=== PATIENT | female | born 1970 | race Caucasian/White ===

== ENCOUNTER 2017-02-04 17:31 | Observation (INO) | payer OTHER, SELFPAY ==
[~2017-02-04 17:31] MED LIST: ISOVUE-370 76%-LOCM 1 ML ONE
[2017-02-04 18:03] LABS: #Basophils 0.1 thou/uL (0.0-0.2); #Eosinphils 0.3 thou/uL (0.0-0.7); #Monocytes 0.6 thou/uL (0.11-0.59); #Neutrophils 6.4 thou/uL (1.40-6.50); %Basophils 0.5 % (0.0-1.0); %Lymphocytes 28.7 % (21.0-51.0); Hematocrit 39.1 % (36.0-47.0); Mean Platelet Volume 7.3 fL (7.4-10.4); Red Blood Cell (RBC) Count 4.49 mill/uL (4.20-5.40); White Blood Cell (WBC) Count 10.4 thou/uL (4.8-10.8)
[2017-02-04 18:32] LABS: ALT (SGPT) 15 U/L (8-55); AST (SGOT) 14 U/L (5-34); Alkaline Phosphatase 82 U/L (40-150); Anion Gap 13 mmol/L (10-20); BUN (Urea Nitrogen) 13 mg/dL (7.0-18.7); Bilirubin, Total 0.2 mg/dL (0.2-1.2); CK (CPK) 42 U/L (29-168); Calc. Creatinine Clearance 0 mL/min (70-130); Calcium 8.8 mg/dL (7.8-10.44); Carbon Dioxide 23 mmol/L (22-29); Chloride 105 mmol/L (98-107); Estimated GFR-MDRD 79; Globulin 3.4 g/dL (2.4-3.5)
--- NOTE | 2017-02-04 18:40 | RAD ---
PORTABLE CHEST: 02/04/17 HISTORY: Chest pain. The lungs are clear of infiltrate. Heart and mediastinum unremarkable. Vascular markings upper normal . IMPRESSION: No evidence of acute process. POS: [facility]
[2017-02-04 18:48] LABS: Troponin I Less than 0.010 ng/mL (< 0.028)
[2017-02-04] MEDS ORDERED: Ondansetron HCl/PF 4 MG/2 ML Vial ONE (20:00)
[2017-02-04] MEDS ORDERED: Morphine 4 MG/ML VIAL ONE (20:00)
[2017-02-04] MEDS ORDERED: Acetaminophen 325 MG TAB PO PRN (20:59)
[2017-02-04] MEDS ORDERED: Benzonatate 100 MG CAP PO PRN (20:59)
[2017-02-04] MEDS ORDERED: Loratadine 10 MG TAB PO PRN (20:59)
[2017-02-04] MEDS ORDERED: Bisacodyl 5 MG TAB PO PRN (20:59)
[2017-02-04] MEDS ORDERED: Nitroglycerin 0.4 MG TAB (25 Tab Bottle) PO PRN (20:59)
[2017-02-04] MEDS ORDERED: Nitroglycerin 0.4 MG TAB (25 Tab Bottle) SL PRN (20:59)
[2017-02-04] MEDS ORDERED: Diabetic Tussin 200 MG/10 ML UDCUP PO PRN (20:59)
[2017-02-04] MEDS ORDERED: Calcium Carbonate 500 MG ChewTAB PO PRN (20:59)
[2017-02-04] MEDS ORDERED: hydrALAZINE 20 MG/ML VIAL SLOW IVP PRN (20:59)
[2017-02-04] MEDS ORDERED: Mag-Al 1200 mg/1200 mg/30 ML UDCUP PO PRN (20:59)
[2017-02-04] MEDS ORDERED: cloNIDine 0.1 MG TAB PO PRN (20:59)
[2017-02-04] MEDS ORDERED: Senokot 8.6 MG TAB PO PRN (20:59)
[2017-02-04] MEDS ORDERED: Lorazepam 1 MG TAB PO PRN (20:59)
[2017-02-04] MEDS ORDERED: Ondansetron HCl/PF 4 MG/2 ML Vial IVP PRN (20:59)
[2017-02-04 21:31] LABS: Troponin I Less than 0.010 ng/mL (< 0.028)
[2017-02-04 21:47] VITALS: BMI 53.4
--- NOTE | 2017-02-04 22:32 | CT ---
CT ANGIO OF CHEST WITH CONTRAST: 02/04/17 Multiple axial tomograms obtained through the chest with IV enhancement in the arterial phase with an dilcia protocol. Multiplanar reconstructions with 3D postprocessing performed. HISTORY: Chest pain. Pleuritic chest pain. FINDINGS: Pulmonary arteries are opacified and appear unremarkable. No evidence of pulmonary embolus identified . The thoracic aorta is opacified and there is no evidence of dissection or aneurysmal dilatation. The lung cornejo are clear. No infiltrate, pneumothorax, or effusion. Mediastinum unremarkable. No adenopathy. Images through the upper abdomen unremarkable. IMPRESSION: No evidence of acute process. POS: [facility]
[2017-02-05 00:24] LABS: Troponin I Less than 0.010 ng/mL (< 0.028)
--- NOTE | 2017-02-05 01:45 | HP ---
DATE OF ADMISSION: 02/04/2017 PRIMARY CARE PHYSICIAN: None. CHIEF COMPLAINT: Chest pain. HISTORY OF PRESENT ILLNESS: Ms. Villanueva is a 46-year-old female with past medical history of hypertens ion, fibromyalgia, and asthma, who presented to the ER with the above-mentioned complaints. History is mainly obtained by the patient herself and electronic medical records have been reviewed. The paris e has been discussed with the admitting ER physician. Ms. Villanueva reports that she has been having left-sided chest pain for the last 2 days. It is worse wi th a deep breath and she rates it as a 10/10 in severity when it hits her. She describes it as a sha rp stabbing pain, which starts under her breast and goes upwards to the center of her sternum. She a lso reports it radiating down her left arm and up her left shoulder. She describes some shortness of breath with it, but denies any diaphoresis, dizziness, or palpitations. She denies any other recent illnesses. She denies any nausea, vomiting, diarrhea, or abdominal pain. She has history of DVT 4 years ago, which was treated for 1 year by Coumadin. The patient does report that she is undergoing a lot of stress. Her fiance has been recently incarce rated and she has just lost her housing as well. She is in the process of moving in with a friend daniella fernando. Upon presentation to the emergency room, she was hemodynamically stable with blood pressure of 139/83 , oxygen saturation 95% on room air, pulse of 85. Her initial workup included a 12-lead EKG, which s hows normal sinus rhythm without any acute ST or T-wave changes. Her initial cardiac enzyme and rest of the blood work are unremarkable. Her D-dimer is within normal limit. Chest x-ray does not show any pleural fluid, effusion, or edema. She has undergone a CT angio of the chest given the pleuritic nature of her chest pain, the results are pending at this time. She is now being admitted for further workup and rule out ACS. She never has had any cardiac risk st ratification in the past. PAST MEDICAL HISTORY: 1. Fibromyalgia. 2. Asthma. 3. Hypertension. 4. Anxiety. 5. Depression. 6. Borderline diabetes. ALLERGIES: SULFA. PAST SURGICAL HISTORY: Removal of the heel spur in 2014. SOCIAL HISTORY: The patient does not have any history of drug, tobacco, or alcohol abuse. FAMILY HISTORY: Significant for diabetes in grandmother. She denies any history of coronary artery disease or stroke running in her family. CURRENT MEDICATIONS: The patient does not remember all of her medications, but she does take aspirin 81 mg daily and metoprolol likely extended release 25 mg daily. REVIEW OF SYSTEMS: The following complete review of systems was negative, unless otherwise mentioned in the HPI or below: Constitutional: Weight loss or gain, ability to conduct usual activities. Skin: Rash, itching. Eyes: Double vision, pain. ENT/Mouth: Nose bleeding, neck stiffness, pain, tenderness. Cardiovascular: Palpitations, dyspnea on exertion, orthopnea. Respiratory: Shortness of breath, wheezing, cough, hemoptysis, fever, or night sweats. Gastrointestinal: Poor appetite, abdominal pain, heartburn, nausea, vomiting, constipation, or diarr hea. Genitourinary: Urgency, frequency, dysuria, nocturia. Musculoskeletal: Pain, swelling. Neurologic/Psychiatric: Anxiety, depression. Allergy/Immunologic: Skin rash, bleeding tendency. LABORATORY DATA: Her CBC is unremarkable. D-dimer is less than 0.27. Serum chemistry showed blood sugar of 106. CK-MB 0.8, troponin less than 0.010, lipase is 11. Chest x-ray by my review is negati ve for any infiltrate, edema, or effusions. No evidence of cardiomegaly. Twelve-lead EKG by my cleopatra azar shows normal sinus rhythm without any acute ST or T-wave changes. PHYSICAL EXAMINATION: VITAL SIGNS: Most recent vital signs include blood pressure 157/92, pulse of 85, respirations 18, sa turating 96% on room air. GENERAL: She is sitting comfortably in chair without any acute distress. She is able to provide all the history without any respiratory problems either. She is awake, alert, and oriented. HEENT: Mucous membrane is moist and pink. Head is normocephalic and atraumatic. Pupils are equal, reactive to light and accommodation. Extraocular movements are intact. NECK: Supple without any lymphadenopathy, JVD, or bruit. CHEST: Clear to auscultation without any wheezing, rales, or rhonchi. CARDIOVASCULAR: Rate and rhythm is regular without any murmur, rubs, or gallops. ABDOMEN: Morbidly obese, soft, nontender, nondistended with positive bowel sounds. EXTREMITIES: Free of any cyanosis, clubbing, or edema. NEUROLOGIC: Nonfocal. SKIN: Free of any rashes or bruises. Feels warm and dry to touch. PSYCHIATRIC: Normal affect. IMPRESSION AND PLAN: 1. Chest pain. The patient has multiple risk factors in the form of hypertension, borderline diabet es, and obesity. At this time, she will be continued on full dose of aspirin. We will restart her b eta rico. She will need risk stratification in the form of stress test. We will also obtain lipi d panel. We will follow up on the results of the CT angio done in the emergency room though she has low clinical risk for pulmonary embolism at this time. She will be continued on p.r.n. oxygen as nee ded and we will add nebulizers to control any breakthrough symptoms of asthma. Currently, her asthma is under well control. She reports that she does not even have to use her inhalers on a daily basis . 2. Hypertension. Restart her beta rico as above. The dose would need to be further confirmed. We will also add p.r.n. antihypertensives. 3. History of fibromyalgia. The patient's symptoms are well controlled at this time. 4. History of asthma. Add nebulizer and oxygen as needed. Symptoms are controlled. 5. Morbid obesity. 6. Add deep venous thrombosis and gastrointestinal prophylaxis. 7. Code status: FULL CODE. Discussed with the patient. 8. Add p.r.n. medication orders. DISPOSITION: Ms. Villanueva is currently being admitted for chest pain workup and rule out ACS and pulmon sofya embolism. Further management will depend upon her clinical course.
[2017-02-05] MEDS: traMADol HCl 50 MG TAB PO PRN ×3 (04:11→14:48)
[2017-02-05 05:36] LABS: #Basophils 0.1 thou/uL (0.0-0.2); #Eosinphils 0.3 thou/uL (0.0-0.7); #Lymphocytes 2.7 thou/uL (1.20-3.40); #Monocytes 0.7 thou/uL (0.11-0.59); #Neutrophils 5.6 thou/uL (1.40-6.50); %Basophils 0.6 % (0.0-1.0); %Eosinophils 3.1 % (0.0-10.0); %Lymphocytes 29.3 % (21.0-51.0); %Monocytes 7.7 % (0.0-10.0); Mean Platelet Volume 7.4 fL (7.4-10.4); Red Blood Cell (RBC) Count 4.54 mill/uL (4.20-5.40); White Blood Cell (WBC) Count 9.4 thou/uL (4.8-10.8)
[2017-02-05 05:58] LABS: Anion Gap 13 mmol/L (10-20); BUN (Urea Nitrogen) 14 mg/dL (7.0-18.7); Calc. Creatinine Clearance 221 mL/min (70-130); Calcium 8.9 mg/dL (7.8-10.44); Carbon Dioxide 23 mmol/L (22-29); Chloride 104 mmol/L (98-107); Estimated GFR-MDRD 80
[2017-02-05] MEDS: Aspirin 325 MG TAB PO SCH (07:34)
[2017-02-05] MEDS ORDERED: Enoxaparin Sodium 40 MG/0.4 ML SYRINGE SC SCH (09:00)
[2017-02-05] MEDS ORDERED: FLU VACC QS2017-18 36 mo. & older 0.5 ML SYRINGE IM ONE (09:00)
[2017-02-05] MEDS: Gabapentin 300 MG CAP PO SCH ×3 (10:54→20:43)
--- NOTE | 2017-02-05 13:05 | PDOC.PN ---
- Subjective Encounter Start Date: 02/05/17 Encounter Start Time: 13:04 Patient seen and examined. No new complaints. No overnight events. No CP. - Objective MAR Reviewed: Yes Vital Signs & Weight: Vital Signs (12 hours) Temp Pulse Resp BP Pulse Ox 02/05/17 11:00 97.3 F L 82 20 154/86 H 94 L 02/05/17 07:53 97.8 F 81 20 02/05/17 07:20 97.8 F 81 20 133/94 H 94 L 02/05/17 04:11 97.7 F 83 16 103/57 L 93 L Weight Weight 341 lb I&O: 02/04/17 02/05/17 02/06/17 06:59 06:59 06:59 Intake Total 720 Balance 720 Result Diagrams: 02/05/17 05:09 02/05/17 05:09 Radiology Reviewed by me: Yes (CXR - no infiltrate, CTA - No PE) EKG Reviewed by me: Yes (Tele SR) Phys Exam - Physical Examination Constitutional: NAD Neck: no JVD Respiratory: no wheezing, no rales, no rhonchi, clear to auscultation bilateral Cardiovascular: RRR, no significant murmur, no rub no heaves Gastrointestinal: soft, non-tender, no distention, positive bowel sounds Musculoskeletal: no edema, pulses present Neurological: non-focal, normal sensation, moves all 4 limbs Psychiatric: normal affect, A&O x 3 Dx/Plan - Plan DVT proph w/SCDs IMPRESSION: 1. Chest pain - troponins negative 2. Morbid Obesity BMI 53.4 3. Fibromyalgia 4. HTN - not at goal 5. Mild int Asthma 6. CKD 2 PLAN: * Await stress test (2 day) * Resume selected home meds - Cymbalta, Doxepin and Gabapentin * Cont to monitor * Add Lidoderm patch * Cont other home meds as below * Monitor BP Review of Systems - Review of Systems Constitutional: negative: Fever, Chills, Sweats, Weakness, Malaise, Other Respiratory: negative: Cough, Dry, Shortness of Breath, Hemoptysis, SOB with Excertion, Pleuritic Pain, Sputum, Wheezing Cardiovascular: negative: Chest Pain, Palpitations, Orthopnea, Paroxysmal Noc. Dyspnea, Edema, Light Headedness - Medications/Allergies Allergies/Adverse Reactions: Allergies Allergy/AdvReac Type Severity Reaction Status Date / Time Sulfa (Sulfonamide Allergy Verified 02/04/17 21:22 Antibiotics) Medications: Current Medications Acetaminophen (Tylenol) 650 mg PO Q4H PRN PRN Reason: Headache/Fever or Pain Last Admin: 02/05/17 07:34 Dose: 650 mg Al Hydroxide/Mg Hydroxide (Maalox) 30 ml PO Q6H PRN PRN Reason: Heartburn or Indigestion Albuterol/Ipratropium (Duoneb) 3 ml NEB Q6H PRN PRN Reason: SOB &/or Wheezing Aspirin (Aspirin) 325 mg PO DAILY [facility] Last Admin: 02/05/17 07:34 Dose: 325 mg Benzonatate (Tessalon) 100 mg PO Q4H PRN PRN Reason: Cough Bisacodyl (Dulcolax) 10 mg PO DAILYPRN PRN PRN Reason: Constipation Calcium Carbonate (Tums) 1,000 mg PO Q4H PRN PRN Reason: Heartburn or Indigestion Clonidine (Catapres) 0.1 mg PO Q4H PRN PRN Reason: Systolic BP > 160 Duloxetine HCl (Cymbalta) 60 mg PO DAILY [facility] Last Admin: 02/05/17 10:54 Dose: 60 mg Gabapentin (Neurontin) 300 mg PO TID [facility] Last Admin: 02/05/17 10:54 Dose: 300 mg Guaifenesin (Robitussin Sf) 200 mg PO Q4H PRN PRN Reason: Cough Hydralazine HCl (Apresoline) 10 mg SLOW IVP Q4H PRN PRN Reason: Systolic BP > 170 Lidocaine (Lidoderm 5% Patch) 1 patch TD Q24H [facility] Loratadine (Claritin) 10 mg PO DAILYPRN PRN PRN Reason: Sinus Symptoms Lorazepam (Ativan) 1 mg PO Q4H PRN PRN Reason: Anxiety/Agitation Metoprolol Succinate (Toprol Xl) 25 mg PO DAILY [facility] Last Admin: 02/05/17 10:54 Dose: 25 mg Mometasone Furoate/Formoterol Fumar (Dulera 200 Mcg/5 Mcg Inhaler) 2 puff INH BID-RT [facility] Nitroglycerin (Nitrostat) 0.4 mg SL Q5MIN PRN PRN Reason: Chest Pain Ondansetron HCl (Zofran) 4 mg IVP Q6H PRN PRN Reason: Nausea/Vomiting Senna (Senokot) 2 tab PO HSPRN PRN PRN Reason: Constipation Tramadol HCl (Ultram) 50 mg PO Q4H PRN PRN Reason: Moderate Pain (4-6) Last Admin: 02/05/17 10:55 Dose: 50 mg
[2017-02-05] MEDS ORDERED: Lidocaine 5% Patch TD SCH (13:15)
[2017-02-05] MEDS ORDERED: Regadenoson 0.4 MG/5 ML SYRINGE ONE (15:31)
[2017-02-05] MEDS ORDERED: Non-Formulary Item 1 EACH (Budesonide-Formoterol [Symbicort 160-4.5] 2 PUFF) INH SCH (18:30)
[2017-02-05] MEDS: Mometasone/Formoterol 120 PUFF INHALER INH SCH (19:38)
[2017-02-05 19:58] VITALS: TEMP 98.2
[2017-02-05] MEDS: Lidocaine Patch Removal 1 EACH TOP SCH ×2 (20:44)
[2017-02-05] MEDS ORDERED: Doxepin HCl 10 MG CAP PO SCH (21:30)
[2017-02-06] MEDS: traMADol HCl 50 MG TAB PO PRN ×2 (00:50→07:20)
[2017-02-06] MEDS ORDERED: Acetaminophen/Codeine 30-300mg Tablet PO PRN (03:26)
[2017-02-06] MEDS: Mometasone/Formoterol 120 PUFF INHALER INH SCH (07:01)
[2017-02-06 08:08] VITALS: BP 120/80
[2017-02-06] MEDS ORDERED: Lidocaine 5% Patch TD SCH (09:00)
[2017-02-06] MEDS: Aspirin 325 MG TAB PO SCH (09:13)
[2017-02-06] MEDS: Gabapentin 300 MG CAP PO SCH (09:13)
--- NOTE | 2017-02-06 11:16 | NM ---
MYOCARDIAL PERFUSION STUDY: Date: 02/06/17 HISTORY: Chest pain. RADIOPHARMACEUTICALS: 32 mCi technetium-99m sestamibi, IV at stress. 33 mCi technetium-99m sestamibi, IV at rest. MEDICATIONS: 0.4 mg of Lexiscan, IV. FINDINGS: There is a very small fixed defect seen within the distal anteroseptal wall on both the resting and s tress acquisitions. There is no reversible defect seen between the stress and resting acquisitions. G ated images show normal ventricular wall motion and wall thickening. The calculated left ventricular ejection fraction is 73%. IMPRESSION: 1. Normal myocardial perfusion study without evidence of a reversible defect seen to suggest ischemi a. The relatively fixed defect in the distal lateral and septal wall is likely related to soft tissue attenuation as there is normal ventricular wall motion and wall thickening in this region. 2. Normal LVEF of 73%. POS: [facility]
--- NOTE | 2017-02-06 14:37 | DIS ---
DATE OF ADMISSION: 02/04/2017 DATE OF ADMISSION: 02/06/2017 DISCHARGE DISPOSITION: Home. FOLLOWUP: Follow up with primary care physician at [facility] in one week. ALLERGIES: Patient is allergic to SULFA. DISCHARGE MEDICATIONS: Same as admission medications: 1. Aspirin 81 mg daily. 2. Symbicort 160/4.5 two puffs b.i.d. 3. Vitamin D3 5000 units daily. 4. Benadryl as needed. 5. Doxepin 10 mg at bedtime. 6. Cymbalta 60 mg daily. 7. Gabapentin 300 mg three times daily. 8. Ibuprofen as needed. 9. DuoNebs as needed. 10. Ativan as needed. 11. Metoprolol succinate 25 mg daily. 12. Potassium 99 mg daily. INPATIENT CONSULTANTS: None. BRIEF HOSPITAL COURSE: Patient is a 46-year-old female with hypertension, anxiety, depression, borde rline diabetes and fibromyalgia who presented to the hospital with chest discomfort. Please refer to the history and physical dated 02/04/2017 for further details. The patient was admitted to the hospital with a diagnosis of chest discomfort, rule out acute coronar y syndrome. Serial cardiac enzymes were negative. CT angiogram of the chest was negative for pulmon sofya embolism. She underwent a Cardiolite stress test, which was a 2-day stress test that was negativ e for reversible ischemia. Ejection fraction was normal at 73%. On the day of discharge, she denies any chest discomfort. The patient was seen and examined today. Vital signs on the day of discharge showed temperature of 97.9, respirations of 16, pulse rate of 88, blood pressure of 120/80. She peter ears stable for discharge. FINAL DIAGNOSES: 1. Chest discomfort, acute coronary syndrome ruled out. 2. Fibromyalgia. 3. Anxiety and depression. 4. No reversible ischemia on the stress test. 5. Borderline diabetes. 6. Morbid obesity with a BMI of 53.4. 7. Chronic kidney disease stage 2. 8. SULFA allergy. 9. Mild intermittent asthma. Plan of care was discussed with the patient. She stated understanding. SIGNIFICANT LABORATORIES: Triglyceride 148, cholesterol 175, LDL 104 with an HDL of 41.
[2017-02-06] MEDS ORDERED: Doxepin HCl 10 MG CAP PO SCH (21:00)
== END 2017-02-06 11:52 | disposition home or self-care (01) ==
LOC: ERS 17:31 → 2SW 19:00
PROVIDERS: ADMIT Internal Medicine; ATTEND Internal Medicine
DX: R07.89 Other chest pain (principal); M79.7 Fibromyalgia; F32.9 Major depressive disorder, single episode, unspecified; F41.9 Anxiety disorder, unspecified; R73.03 Prediabetes; J45.909 Unspecified asthma, uncomplicated; I12.9 Hypertensive chronic kidney disease with stage 1 through stage 4 chronic kidney disease, or unspecified chronic kidney disease; N18.2 Chronic kidney disease, stage 2 (mild); E66.01 Morbid (severe) obesity due to excess calories; Z68.43 Body mass index [BMI] 50.0-59.9, adult; Z88.2 Allergy status to sulfonamides
CPT/HCPCS: 36415; 71010; 71275; 78452; 80048; 80053; 80061; 82550; 82553; 83690; 84484; 85025; 85379; 90471; 90682; 90732; 93005; 93017; 94760; 96372; 96374; 96375; A9500; G0008; G0009; G0378; J1650; J2270; J2405; J2785; Q2036

== ENCOUNTER 2017-02-18 17:57 | Emergency (ER) | payer SELFPAY ==
[2017-02-18 18:47] LABS: #Basophils 0.1 thou/uL (0.0-0.2); #Eosinphils 0.2 thou/uL (0.0-0.7); #Lymphocytes 2.9 thou/uL (1.20-3.40); #Monocytes 0.5 thou/uL (0.11-0.59); #Neutrophils 6.4 thou/uL (1.40-6.50); %Basophils 0.5 % (0.0-1.0); %Eosinophils 2.3 % (0.0-10.0); %Lymphocytes 28.3 % (21.0-51.0); %Monocytes 5.2 % (0.0-10.0); Hematocrit 38.7 % (36.0-47.0); Mean Platelet Volume 7.6 fL (7.4-10.4); Red Blood Cell (RBC) Count 4.45 mill/uL (4.20-5.40); White Blood Cell (WBC) Count 10.1 thou/uL (4.8-10.8)
[2017-02-18 19:16] LABS: ALT (SGPT) 14 U/L (8-55); AST (SGOT) 20 U/L (5-34); Alkaline Phosphatase 66 U/L (40-150); Anion Gap 14 mmol/L (10-20); BUN (Urea Nitrogen) 11 mg/dL (7.0-18.7); Bilirubin, Total 0.3 mg/dL (0.2-1.2); Calc. Creatinine Clearance 0 mL/min (70-130); Calcium 9.1 mg/dL (7.8-10.44); Carbon Dioxide 22 mmol/L (22-29); Chloride 104 mmol/L (98-107); Estimated GFR-MDRD 82; Globulin 3.6 g/dL (2.4-3.5); Lipase 7 U/L (8-78); Protein, Total 7.3 g/dL (6.0-8.3); Troponin I Less than 0.010 ng/mL (< 0.028)
[2017-02-18 19:44] LABS: Bilirubin Negative (Negative); Blood, Urine Negative (Negative); Glucose, Urine (Dipstick) Negative (Negative); Ketone, Urine Negative (Negative); Nitrite Negative (Negative); Protein, Urine (Dipstick) Negative (Neg-Trace); Urobilinogen 0.2 mg/dL (0.2-1.0)
--- NOTE | 2017-02-18 21:14 | RAD ---
ONE VIEW CHEST: HISTORY: Left-sided pain. COMPARISON: 02/04/2017 FINDINGS: Normal cardiac silhouette. The lungs and pleural spaces are clear. No pneumothorax. No osseous abnormalities. IMPRESSION: No acute cardiopulmonary process. POS: [facility]
--- NOTE | 2017-02-18 21:30 | CT ---
EXAM: ABDOMEN CT WITH CONTRAST PELVIC CT WITH CONTRAST 02/18/17 HISTORY: Left sided abdominal pain. COMPARISON: Aortic dissection protocol 03/26/16. CORRELATION: CT angiogram chest 02/04/17. TECHNIQUE: An abdomen and pelvic CT is performed with IV contrast. Enteric contrast was not administered. Landeros l reformatted images are submitted for interpretation. FINDINGS: The visualized lung bases are clear. Heart size is normal. No significant pericardial effusion. Appro priate caliber of the aorta. Intra and extrahepatic portal vein is patent. Gallbladder is surgically absent. Hypoattenuation of the liver due to hepatic steatosis is noted. There is a hypodensity adjacent to th e right hepatic lobe which may be extraparenchymal in location measuring 2 cm, with an attenuation co efficient of 11 Hounsfield units. Possibility of a postoperative cyst is raised. The spleen, pancreas and adrenal glands are unremarkable. Symmetric enhancement of the kidneys. Bilaterally, no obstructi ve uropathy. No gastrohepatic, retrocrural or periportal lymphadenopathy. No mesenteric mass, lymphadenopathy, free air or free fluid. Limited evaluation of the alimentary canal due to lack of oral contrast. No evidence of bowel obstruc tion. Normal ileocecal junction. Normal caliber appendix. Fecal material in a nondistended, nondilate d colon. Diverticulosis, without evidence of diverticulitis. PELVIC CT: Uterus and right adnexa are unremarkable. Hypodensity in the left adnexa, measuring 1.6 x 1.8 cm may represent a complex dominant follicle. There are no lytic or blastic lesions in the osseous structures. IMPRESSION: 1. No evidence of bowel obstruction. 2. No acute abnormality in the abdomen. 3. Hypodensity adjacent to the right hepatic lobe likely representing a postoperative cyst. 4. Hypodensity in the left adnexa, likely representing a complex dominant follicle associated wi th left ovary. Follow up pelvic ultrasound in 8 weeks to ensure resolution. POS: [facility]
--- NOTE | 2017-03-14 13:26 | EKG ---
Test Reason : CP Blood Pressure : / mmHG Vent. Rate : 076 BPM Atrial Rate : 076 BPM P-R Int : 166 ms QRS Dur : 096 ms QT Int : 380 ms P-R-T Axes : 022 016 039 degrees QTc Int : 427 ms Normal sinus rhythm Normal ECG Confirmed by MARIA ANTONIA VELEZ ([id number]), editor in chief newspaper KATHY ROSA ([id number]) on 03/14/2017 1:26:15 PM Referred By: Confirmed By:MARIA ANTONIA VELEZ
== END 2017-02-18 20:02 | disposition home or self-care (01) ==
LOC: ERS 17:57
DX: R07.89 Other chest pain (principal); R10.12 Left upper quadrant pain; I10 Essential (primary) hypertension; J45.909 Unspecified asthma, uncomplicated; F41.9 Anxiety disorder, unspecified; F32.9 Major depressive disorder, single episode, unspecified; Z86.718 Personal history of other venous thrombosis and embolism; Z79.899 Other long term (current) drug therapy; Z79.82 Long term (current) use of aspirin
CPT/HCPCS: 36415; 71010; 74177; 80053; 81003; 82553; 83690; 84484; 85025; 93005

== ENCOUNTER 2017-02-28 18:19 | Inpatient (IN) | payer SELFPAY ==
[2017-02-28] MEDS ORDERED: Magnesium Sulfate 2 GM/100 ML BAG ONE (18:24)
[2017-02-28] MEDS ORDERED: Acetaminophen 500 MG TAB ONE (19:01)
[2017-02-28] MEDS ORDERED: Nitroglycerin 2% Ointment 1 INCH/1 GM Packet ONE (19:01)
[2017-02-28 19:38] LABS: #Eosinphils 0.1 thou/uL (0.0-0.7); #Monocytes 0.4 thou/uL (0.11-0.59); %Basophils 0.1 % (0.0-1.0); %Eosinophils 1.2 % (0.0-10.0); %Monocytes 4.2 % (0.0-10.0); Hematocrit 39.9 % (36.0-47.0); Mean Platelet Volume 8.6 fL (7.4-10.4); Red Blood Cell (RBC) Count 4.57 mill/uL (4.20-5.40); White Blood Cell (WBC) Count 9.5 thou/uL (4.8-10.8)
--- NOTE | 2017-02-28 19:52 | RAD ---
RADIOGRAPH CHEST 1 VIEW: 02/28/17 HISTORY: 47-year-old female with dyspnea. FINDINGS: There is no air space density, pulmonary edema, or pneumothorax. The lateral costophrenic angles are sharp. IMPRESSION: No acute pulmonary findings. nella [] POS: [facility]
[2017-02-28 19:59] LABS: ALT (SGPT) 13 U/L (8-55); AST (SGOT) 18 U/L (5-34); Alkaline Phosphatase 82 U/L (40-150); Anion Gap 15 mmol/L (10-20); BUN (Urea Nitrogen) 10 mg/dL (7.0-18.7); Bilirubin, Total 0.3 mg/dL (0.2-1.2); Calc. Creatinine Clearance 0 mL/min (70-130); Calcium 8.4 mg/dL (7.8-10.44); Carbon Dioxide 22 mmol/L (22-29); Chloride 102 mmol/L (98-107); Estimated GFR-MDRD 72; Globulin 3.7 g/dL (2.4-3.5); Protein, Total 7.3 g/dL (6.0-8.3)
[2017-02-28 20:05] LABS: Troponin I Less than 0.010 ng/mL (< 0.028)
[2017-02-28] MEDS ORDERED: Lorazepam 2 MG/ML VIAL ONE (20:39)
[2017-02-28] MEDS ORDERED: Piperacillin/Tazobactam 4.5 GM in Sodium Chloride 0.9% 100 ML IVPB SCH (20:45)
[2017-02-28] MEDS ORDERED: cefTRIAXone\\ROCEPHIN 2 GM in Sodium Chloride 0.9% 100 ML IVPB SCH (20:45)
[2017-02-28 22:43] LABS: Oxyhemoglobin 94.9 % (94.0-97.0); Sodium 138 mmol/L (135-148)
[2017-02-28 22:56] LABS: Troponin I Less than 0.010 ng/mL (< 0.028)
[2017-02-28] MEDS ORDERED: Morphine 2 mg/2ml in 0.9% NaCl PF SYRINGE ONE (23:41)
[2017-03-01 00:23] LABS: Mode Nasal Cannula; Modified Allen's Test POSITIVE; Vent NO
[2017-03-01] MEDS ORDERED: Albuterol Sulfate 2.5 mg/3 ml Neb NEB PRN (01:41)
--- NOTE | 2017-03-01 01:41 | PDOC.EVN ---
Event Note - Event Note Event Note: [id number] H&P Dictated 1. Acute asthma exacerbation 2. Chest pain 3. HTN PLAN; SEE ORDERS
[2017-03-01 02:02] LABS: Troponin I Less than 0.010 ng/mL (< 0.028)
--- NOTE | 2017-03-01 02:34 | HP ---
CHIEF COMPLAINT: Dyspnea. HISTORY OF PRESENT ILLNESS: The patient is a 47-year-old female with past medical history of fibromy algia, anxiety, depression, hypertension and diabetes mellitus type 2, came to the ER complaining of dyspnea. Dyspnea started all of sudden this afternoon. Dyspnea got worse associated with some cough and sputum production also, had one episode of vomiting. The patient tried some breathing treatment s, it did not help her. Patient started having some chest pain also. Chest pain is substernal, radi ating to the left shoulder also. Pain gets worse with breathing. Denies any fever, denies any chill s. Pain is moderate in intensity, resolves with pain medication. Denies any dizziness. Patient rivas vick came to the ER and was placed on BiPAP because of the dyspnea, but respirations has improved w ith the breathing treatments and steroids, so currently on nasal cannula. PAST MEDICAL HISTORY: As per HPI. PAST SURGICAL HISTORY: Cholecystectomy and Achilles tendon repair. SOCIAL HISTORY: Denies smoking, denies alcohol or illicit drugs. FAMILY HISTORY: Positive for heart problems. MEDICATIONS: Reviewed. REVIEW OF SYSTEMS: Constitutional: Denies any fever, denies any chills. Eyes: Denies vision probl ems. Ears: Denies any hearing loss. Neck: Denies any neck pain. Cardiovascular System: Positive for chest pain. Respiratory System: Positive for cough and sputum production. Gastrointestinal: Denies nausea, denies vomiting. Genitourinary: Denies dysuria. Musculoskeletal: Denies any joint deformities. Cranial Nervous System: Denies syncope, denies lightheadedness. All other review of s ystems are reviewed and are negative. PHYSICAL EXAMINATION: CONSTITUTIONAL/VITAL SIGNS: At the time of H&P performed, blood pressure is 130/70, afebrile, respir atory rate is 18. GENERAL: The patient appears comfortable. HEENT: Pupils are equal, round and reactive to light. Anterior nares patent. Nose normal. Teeth i ntact. Tongue is moist. NECK: Supple. No JVD. CARDIOVASCULAR SYSTEM: S1 and S2 present. Regular rate and rhythm. No murmurs, no rubs, no gallops . RESPIRATORY SYSTEM: No wheezing, no rhonchi present. Breath sounds bilaterally. Occasional wheezin g present, but improved, diminished at the bases. GASTROINTESTINAL: Abdomen is soft and nontender. No guarding, no organomegaly, no masses felt. MUSCULOSKELETAL: No edema. CRANIAL NERVOUS SYSTEM: Cranial nerves intact. Follows commands. Strength intact and sensory intac t. PSYCHIATRIC: Mood is appropriate at this time. INTEGUMENTARY: No rashes seen. LABORATORY DATA: At the time of H&P performed; white count 9.5, hemoglobin 13.7 and platelet count i s 197. ABG showed pH of 7.37, pCO2 of 42, pO2 of 86 and bicarbonate is 24.1. BMP showed sodium of 1 35, potassium 2.6, chloride 102, CO2 of 22, BUN of 10, creatinine 0.84, troponin less than 0.010. CT chest is pending. ASSESSMENT AND PLAN: The patient is a 47-year-old female. 1. Chest pain, need to rule out cardiac etiology. Plan to check cardiac enzymes. Plan to consult C ardiology to evaluate the patient, appears atypical. We will monitor patient closely. 2. Acute asthma exacerbation, breathing status improved. Continue IV steroids, continue breathing t reatments. We will follow the patient. 3. Acute bronchitis. Plan to start the patient on IV azithromycin 500 mg daily. 4. History of fibromyalgia, depression and anxiety. Continue home medications. 5. History of hypertension. Monitor blood pressures. Continue home blood pressure meds. 6. History of diabetes type 2, monitor blood sugars. We will do insulin sliding scale. The case was discussed in detail with the patient.
[2017-03-01] MEDS ORDERED: Morphine 4 MG/ML VIAL SLOW IVP PRN (04:56)
[2017-03-01 04:57] VITALS: BMI 52.9
[2017-03-01 06:13] LABS: Troponin I Less than 0.010 ng/mL (< 0.028)
--- NOTE | 2017-03-01 08:52 | CT ---
PRELIMINARY REPORT/[facility]/EMERGENCY AFTER HOURS PROCEDURE: EXAM: CT Angiography Chest With Intravenous Contrast CLINICAL HISTORY: 47 years old, female; Radiating chest pain; HX asthma. Increased wheezing and SOB. Mid sternal chest pain radiating to back. Productive cough with green sputum x several days. No fever or chills. Non-smoker but exposed to daily second hand smoke. TECHNIQUE: Axial computed tomographic angiography images of the chest with intravenous contrast using pulmonary embolism protocol. MIP reconstructed images were created and reviewed. Oblique reformatted images were created and reviewed. COMPARISON: No relevant prior studies available. FINDINGS: Pulmonary arteries: No evidence of pulmonary embolism. Aorta: Normal caliber thoracic aorta without dissection or aneurysm. Lungs: Faint scattered patches of "ground glass" infiltrate within each lung. No mass. Pleural space: No pleural fluid collection. No pneumothorax. Heart: No pericardial effusion. No evidence of RV dysfunction. Bones/joints: Spinal degenerative changes. No acute fracture. No dislocation. Soft tissues: Unremarkable. Lymph nodes: No pathologically enlarged lymph nodes. Gallbladder and bile ducts: Status post cholecystectomy. IMPRESSION: 1. No evidence of pulmonary embolism. 2. Faint scattered patches of "ground glass" infiltrate within each lung. Thank you for allowing us to participate in the care of your patient. Dictated and Authenticated by: Sampson Dhillon MD 03/01/2017 12:45 AM Central Time ([place] & [place]) FINAL REPORT CT PULMONARY ANGIO: TECHNIQUE: Multiple axial tomograms are obtained through the chest with dynamic IV enhancement on the pulmonary artery phase following the angio protocol with multiplanar reconstruction and 3D post processing. HISTORY: History is as noted on preliminary report. FINDINGS/IMPRESSION: No evidence of pulmonary embolus. I am in agreement with the preliminary report. POS: [facility]
[2017-03-01] MEDS: Gabapentin 300 MG CAP PO SCH ×3 (09:09→20:46)
[2017-03-01] MEDS: Mometasone/Formoterol 120 PUFF INHALER INH SCH ×2 (09:14→19:40)
--- NOTE | 2017-03-01 09:44 | PDOC.PN ---
- Subjective Encounter Start Date: 03/01/17 Encounter Start Time: 09:42 Ms. Villanueva was seen today in follow-up of shortness of breath and chest pain. She still notes some difficulty with breathing, with wheezing, and also a constant pain in her chest, which is worse with cough or breathing. - Objective MAR Reviewed: Yes Vital Signs & Weight: Vital Signs (12 hours) Temp Pulse Resp BP Pulse Ox 03/01/17 09:14 82 16 03/01/17 07:43 97.1 F L 76 16 111/52 L 94 L 03/01/17 03:00 97.7 F 98 18 119/67 97 Weight Weight 338 lb 6 oz I&O: 02/28/17 03/01/17 03/02/17 06:59 06:59 06:59 Intake Total 100 Balance 100 Result Diagrams: 02/28/17 19:19 02/28/17 19:19 Phys Exam - Physical Examination HEENT: PERRLA + Expiratory wheeze, and long expiratory phase Cardiovascular: RRR, no significant murmur Gastrointestinal: soft, non-tender, positive bowel sounds Musculoskeletal: no edema Dx/Plan (1) Acute and chronic respiratory failure Code(s): J96.20 - ACUTE AND CHR RESP FAILURE, UNSP W HYPOXIA OR HYPERCAPNIA Status: Acute (2) Asthma exacerbation Code(s): J45.901 - UNSPECIFIED ASTHMA WITH (ACUTE) EXACERBATION Status: Acute (3) Diabetes mellitus type 2 in obese Code(s): E11.69 - TYPE 2 DIABETES MELLITUS WITH OTHER SPECIFIED COMPLICATION; E66.9 - OBESITY, UNSPECIFIED Status: Acute (4) Hypertension Code(s): I10 - ESSENTIAL (PRIMARY) HYPERTENSION Status: Acute (5) Fibromyalgia Status: Acute - Plan * Asthma exacerbation- will continue Duonebs and steroids and IV antibiotics ( Rocephin and Azithromycin) * DM- continue SSI * HTN- blood pressure is controlled * CP- symptoms are atypical for CAD, and Troponin's are negative, suspect due to current asthma exacerbation.
[2017-03-01] MEDS ORDERED: Dextrose 50% Abboject 50 ML SYRINGE SLOW IVP PRN (09:48)
[2017-03-01] MEDS ORDERED: Dextrose 5% in Water 1,000 ML IV PRN (09:48)
[2017-03-01 10:27] LABS: #Eosinphils 0.1 thou/uL (0.0-0.7); #Lymphocytes 0.8 thou/uL (1.20-3.40); #Monocytes 0.2 thou/uL (0.11-0.59); #Neutrophils 9.8 thou/uL (1.40-6.50); %Basophils 0.2 % (0.0-1.0); %Eosinophils 0.5 % (0.0-10.0); %Lymphocytes 7.4 % (21.0-51.0); %Monocytes 1.5 % (0.0-10.0); Hematocrit 37.5 % (36.0-47.0); Mean Platelet Volume 7.9 fL (7.4-10.4); Red Blood Cell (RBC) Count 4.25 mill/uL (4.20-5.40); White Blood Cell (WBC) Count 10.9 thou/uL (4.8-10.8)
[2017-03-01] MEDS ORDERED: Heparin 1,000 UNITS/ML VIAL ONE (14:56)
[2017-03-01] MEDS ORDERED: Ibuprofen 600 MG TAB PO PRN (15:46)
[2017-03-01] MEDS: HYDROcodone/Acetaminophen 5/325 mg Tablet PO PRN ×2 (16:40→21:10)
[2017-03-01] MEDS: HumaLOG 300 UNITS/3 ML VIAL SC PRN ×2 (17:21→21:01)
[2017-03-01] MEDS ORDERED: cefTRIAXone\\ROCEPHIN 1 GM in Sterile Water 10 ML SLOW IVP SCH (20:00)
[2017-03-01] MEDS: guaiFENesin ER 600 MG TAB PO SCH (20:46)
[2017-03-01] MEDS: Doxepin HCl 10 MG CAP PO SCH (20:51)
[2017-03-01] MEDS ORDERED: Azithromycin 500 MG in Sodium Chloride 0.9% 250 ML 250 ML IVPB SCH (21:00)
[2017-03-01] MEDS: Lorazepam 1 MG TAB PO PRN (21:11)
[2017-03-02 05:08] LABS: Anion Gap 13 mmol/L (10-20); BUN (Urea Nitrogen) 15 mg/dL (7.0-18.7); Calc. Creatinine Clearance 222 mL/min (70-130); Calcium 9.3 mg/dL (7.8-10.44); Carbon Dioxide 26 mmol/L (22-29); Chloride 102 mmol/L (98-107); Estimated GFR-MDRD 82
[2017-03-02] MEDS: Mometasone/Formoterol 120 PUFF INHALER INH SCH ×2 (07:17→18:00)
[2017-03-02] MEDS: Gabapentin 300 MG CAP PO SCH ×3 (08:52→20:26)
[2017-03-02] MEDS: guaiFENesin ER 600 MG TAB PO SCH ×2 (08:53→20:26)
[2017-03-02] MEDS: HYDROcodone/Acetaminophen 5/325 mg Tablet PO PRN ×3 (08:56→17:40)
[2017-03-02] MEDS: HumaLOG 300 UNITS/3 ML VIAL SC PRN ×2 (11:13→15:49)
--- NOTE | 2017-03-02 14:55 | PDOC.PN ---
- Subjective Encounter Start Date: 03/02/17 Encounter Start Time: 14:53 Ms. Villanueva was seen in follow-up for asthma exacerbation. She says she is not feeling any better, infact she says she feels worse. She also complains of pain in her left shoulder. - Objective MAR Reviewed: Yes Vital Signs & Weight: Vital Signs (12 hours) Temp Pulse Resp BP Pulse Ox 03/02/17 11:20 97.7 F 80 12 127/81 96 03/02/17 08:37 96.3 F L 73 16 03/02/17 07:40 96.3 F L 73 16 121/74 94 L 03/02/17 04:30 95 03/02/17 03:40 97.7 F 77 20 118/76 91 L Weight Admit Weight 338 lb Weight 338 lb 6 oz I&O: 03/01/17 03/02/17 03/03/17 06:59 06:59 06:59 Intake Total 100 1200 Output Total 1950 Balance 100 -750 Result Diagrams: 03/01/17 05:11 03/02/17 04:28 Additional Labs: Accuchecks 03/02/17 03/02/17 03/01/17 11:11 05:00 21:01 POC Glucose 168 H 138 H 163 H 03/01/17 16:26 POC Glucose 192 H Phys Exam - Physical Examination HEENT: PERRLA Respiratory: wheezing present + wheezing throughout both lung cornejo Cardiovascular: RRR, no significant murmur Gastrointestinal: soft, non-tender, positive bowel sounds Musculoskeletal: no edema Dx/Plan (1) Acute and chronic respiratory failure Code(s): J96.20 - ACUTE AND CHR RESP FAILURE, UNSP W HYPOXIA OR HYPERCAPNIA Status: Acute (2) Asthma exacerbation Code(s): J45.901 - UNSPECIFIED ASTHMA WITH (ACUTE) EXACERBATION Status: Acute (3) Diabetes mellitus type 2 in obese Code(s): E11.69 - TYPE 2 DIABETES MELLITUS WITH OTHER SPECIFIED COMPLICATION; E66.9 - OBESITY, UNSPECIFIED Status: Acute (4) Hypertension Code(s): I10 - ESSENTIAL (PRIMARY) HYPERTENSION Status: Acute (5) Fibromyalgia Status: Acute - Plan * Asthma Exacerbation- continue Duonebs, and Steroids, as well as empiric Antibiotics * Will consult Pulmonary to aid in her management * HTN- blood pressure is stable * DM- blood glucose is stable * Pleuritic Pain- Will add Toradol ( she says she has taken this in the past without problems)- avaod any other narcotic medications.
[2017-03-02] MEDS: Ketorolac Tromethamine 30 MG/ML VIAL IVP PRN ×2 (15:47→20:59)
[2017-03-02] MEDS: Lorazepam 1 MG TAB PO PRN (20:26)
[2017-03-02] MEDS: Doxepin HCl 10 MG CAP PO SCH (21:00)
[2017-03-03] MEDS: Mometasone/Formoterol 120 PUFF INHALER INH SCH ×2 (07:12→19:18)
[2017-03-03] MEDS: Azithromycin 250 MG TAB PO SCH (08:04)
[2017-03-03] MEDS: Gabapentin 300 MG CAP PO SCH ×3 (08:04→20:46)
[2017-03-03] MEDS: guaiFENesin ER 600 MG TAB PO SCH ×2 (08:04→20:46)
[2017-03-03] MEDS: predniSONE 20 MG TAB PO SCH (08:04)
[2017-03-03] MEDS: HYDROcodone/Acetaminophen 5/325 mg Tablet PO PRN ×2 (12:11→17:57)
--- NOTE | 2017-03-03 14:38 | PDOC.PN ---
- Subjective Encounter Start Date: 03/03/17 Encounter Start Time: 14:29 Ms. Villanueva was seen today in follow-up of Asthma exacerbation. She says she is not any better than yesterday. She can barely walk a few steps before becoming extremely short winded. - Objective MAR Reviewed: Yes Vital Signs & Weight: Vital Signs (12 hours) Temp Pulse Resp BP Pulse Ox 03/03/17 11:23 97.9 F 80 18 147/79 H 92 L 03/03/17 08:00 97.6 F 71 20 03/03/17 07:54 97.6 F 71 20 119/71 100 Weight Admit Weight 338 lb Weight 338 lb 6 oz I&O: 03/02/17 03/03/17 03/04/17 06:59 06:59 06:59 Intake Total 1200 Output Total 1950 Balance -750 Result Diagrams: 03/01/17 05:11 03/02/17 04:28 Additional Labs: Accuchecks 03/03/17 03/03/17 03/02/17 11:05 04:51 19:35 POC Glucose 134 H 95 158 H 03/02/17 15:25 POC Glucose 176 H Phys Exam - Physical Examination HEENT: PERRLA Respiratory: wheezing present + bilateral wheezing- more pronounced than Cardiovascular: RRR, no significant murmur Gastrointestinal: soft, non-tender, positive bowel sounds Musculoskeletal: no edema Dx/Plan (1) Acute and chronic respiratory failure Code(s): J96.20 - ACUTE AND CHR RESP FAILURE, UNSP W HYPOXIA OR HYPERCAPNIA Status: Acute (2) Asthma exacerbation Code(s): J45.901 - UNSPECIFIED ASTHMA WITH (ACUTE) EXACERBATION Status: Acute (3) Diabetes mellitus type 2 in obese Code(s): E11.69 - TYPE 2 DIABETES MELLITUS WITH OTHER SPECIFIED COMPLICATION; E66.9 - OBESITY, UNSPECIFIED Status: Acute (4) Hypertension Code(s): I10 - ESSENTIAL (PRIMARY) HYPERTENSION Status: Acute (5) Fibromyalgia Status: Acute - Plan * Asthma exacerbation- She is not yet stable for discharge home, despite 48hr of Observation. She continues to require supplemental oxygen, and has continue tight wheezing. She lost IV access last night, and regressed on oral medication * Will therefore admit her In-patient, and Pulmonary Medicine has been consulted * Will resume IV steroids, and IV antibiotics once the Picc line has been placed * DM- blood glucose is stable * HTN- blood pressure is stable.
--- NOTE | 2017-03-03 17:44 | SPC ---
ULTRASOUND GUIDED LEFT UPPER EXTREMITY PICC LINE PLACEMENT: Date: 03/03/17 HISTORY: IV access required. COMPARISON: None. EXPOSURE: 0.6 minutes. [id number] mGy*cm^2. FINDINGS: Technically successful left upper extremity PICC line placement. Trim length is 48 cm. Distal tip in right atrium. Single lumen catheter does flush and aspirate without difficulty. TECHNIQUE: Consent was obtained to perform a left upper extremity PICC line placement. The left arm was prepped and draped in the sterile fashion. 1% lidocaine, buffered with sodium bicarbonate, was used for local anesthesia. Under fluoroscopic guidance, a micropuncture needle was used to cannulate the brachial v ein. A 0.018 guidewire was advanced through the needle to the level of the inferior vena cava. Wire w as subsequently pulled back to the right atrium. Tract was dilated. A single lumen 5 [place] catheter was advanced over the wire. Single lumen catheter wire does flush and aspirate without difficulty. Tr im length 48 cm. IMPRESSION: Technically successful left upper extremity PICC line placement with ultrasound guidance. POS: GALLITO
--- NOTE | 2017-03-03 19:40 | CON ---
DATE OF CONSULTATION: 03/03/2017 HISTORY OF PRESENT ILLNESS: Ms. Villanueva is a pleasant 47-year-old female. She says she developed asth ma in her 20s. She has not had a history of frequent hospitalizations. On the day of admission, she started having progressive shortness of breath and says she is a little better now than she was when she came in, but not a lot. She was admitted several days ago. PAST MEDICAL HISTORY: Remarkable for an Achilles bone spur surgery on her heel with relocation of an Achilles tendon. She says her foot has not been right since then, but she did not want to undergo a nother surgery. She has had a cholecystectomy in the past. SOCIAL HISTORY: She is nonsmoker, nondrinker. FAMILY HISTORY: Positive for vascular disease. No history of lung disease at an early age. REVIEW OF SYSTEMS: Ten points are otherwise negative. She has had no purulent sputum. She has had mainly a cough with wheezing. PHYSICAL EXAMINATION: GENERAL: She is afebrile, heart rate 76, respiratory rate is 20, oximetry is 97, blood pressure 152/ 81. HEENT: Pupils are equal. Sclerae are anicteric. NECK: Supple. LUNGS: Remarkable for diffuse coarse wheezes. HEART: Regular rhythm. S1 and S2 are normal. ABDOMEN: Soft and nontender. EXTREMITIES: Without clubbing, cyanosis, or edema. LABORATORY DATA: White count 10.9, hemoglobin 12.6, platelets 225. Sodium 135, potassium 3.6, chlor rafy 102, bicarbonate 22, BUN 10, creatinine 0.8. Blood gas on the 15th, 7.37, CO2 of 42, pO2 of 86. CT pulmonary angiogram done on 02/28/2017 showed no thromboembolic disease, patchy ground glass infil trates were seen in each lung. IMPRESSION: 1. Atypical pneumonia ?. 2. Status asthmaticus. 3. Obesity. 4. History of sleep apnea. She says she cannot wear CPAP because of claustrophobia. PLAN: Usferv-ady-zxuzy nebs. Continue with the steroids. Continue with antibiotics for now.
[2017-03-03] MEDS: Doxepin HCl 10 MG CAP PO SCH (20:46)
[2017-03-03] MEDS: Lorazepam 1 MG TAB PO PRN (23:07)
[2017-03-04] MEDS: Ketorolac Tromethamine 30 MG/ML VIAL IVP PRN ×3 (05:24→20:56)
[2017-03-04] MEDS: Mometasone/Formoterol 120 PUFF INHALER INH SCH ×2 (06:35→20:16)
[2017-03-04] MEDS: HYDROcodone/Acetaminophen 5/325 mg Tablet PO PRN ×2 (06:37→15:21)
[2017-03-04] MEDS: Gabapentin 300 MG CAP PO SCH ×3 (08:18→20:50)
[2017-03-04] MEDS: predniSONE 20 MG TAB PO SCH (08:18)
[2017-03-04] MEDS: Azithromycin 250 MG TAB PO SCH (08:19)
[2017-03-04] MEDS: guaiFENesin ER 600 MG TAB PO SCH ×2 (08:19→20:50)
--- NOTE | 2017-03-04 09:58 | PRG ---
DATE OF SERVICE: 03/04/2017 Ms. Villanueva says she is feeling better. PHYSICAL EXAMINATION: VITAL SIGNS: She is afebrile, heart rate 72, respiratory rate 16, blood pressure 122/70. LUNGS: Clear except for end expiratory wheezes. I think some of her end expiratory wheezes are for janet vocal cord adduction. IMPRESSION: Asthmatic bronchitis with possible coexistent atypical pneumonia. PLAN: Continue antibiotics, steroids, and nebulizer treatments. Try to get a bedside spirometry sivan chester
--- NOTE | 2017-03-04 14:53 | PDOC.PN ---
- Subjective Encounter Start Date: 03/04/17 Encounter Start Time: 14:46 Ms. Villanueva was seen in follow-up of Asthma exacerbation. She admits to feeling a little better today, but says her chest is hurting. She is also complaining of feeling anxious, and says she has a lot of stress going on. - Objective MAR Reviewed: Yes Vital Signs & Weight: Vital Signs (12 hours) Temp Pulse Resp BP BP Pulse Ox 03/04/17 13:35 86 16 96 03/04/17 11:30 97.8 F 86 18 119/75 95 03/04/17 09:54 71 14 95 03/04/17 08:00 97.6 F 72 16 122/70 99 03/04/17 07:50 97.6 F 75 16 122/70 100 03/04/17 06:35 82 16 95 03/04/17 06:34 82 16 95 03/04/17 03:50 97.9 F 82 20 106/67 94 L 03/04/17 03:39 96 Weight Admit Weight 338 lb Weight 338 lb 6 oz I&O: 03/03/17 03/04/17 03/05/17 06:59 06:59 06:59 Intake Total 310 480 Output Total 600 Balance -290 480 Result Diagrams: 03/01/17 05:11 03/02/17 04:28 Additional Labs: Accuchecks 03/04/17 03/04/17 03/03/17 11:15 03:49 18:56 POC Glucose 123 H 104 136 H 03/03/17 16:41 POC Glucose 105 Phys Exam - Physical Examination HEENT: PERRLA Respiratory: no rales, no rhonchi, wheezing present Wheezing is present but impoved from yesterday Cardiovascular: RRR, no significant murmur Gastrointestinal: soft, non-tender, positive bowel sounds Musculoskeletal: no edema Dx/Plan (1) Acute and chronic respiratory failure Code(s): J96.20 - ACUTE AND CHR RESP FAILURE, UNSP W HYPOXIA OR HYPERCAPNIA Status: Acute (2) Asthma exacerbation Code(s): J45.901 - UNSPECIFIED ASTHMA WITH (ACUTE) EXACERBATION Status: Acute (3) Diabetes mellitus type 2 in obese Code(s): E11.69 - TYPE 2 DIABETES MELLITUS WITH OTHER SPECIFIED COMPLICATION; E66.9 - OBESITY, UNSPECIFIED Status: Acute (4) Hypertension Code(s): I10 - ESSENTIAL (PRIMARY) HYPERTENSION Status: Acute (5) Fibromyalgia Status: Acute - Plan * Asthma exacerbation- improving- Pulmonary recommendations noted * Chest pain- pleurisy- continue symptom control- this is expected to be self- limiting * HTN- blood pressure is stable * DM- blood glucose is stable .
[2017-03-04] MEDS: Doxepin HCl 10 MG CAP PO SCH (20:50)
[2017-03-05] MEDS: Ketorolac Tromethamine 30 MG/ML VIAL IVP PRN ×2 (05:08→20:05)
[2017-03-05] MEDS: HYDROcodone/Acetaminophen 5/325 mg Tablet PO PRN ×2 (05:12→11:15)
[2017-03-05] MEDS: Mometasone/Formoterol 120 PUFF INHALER INH SCH ×2 (07:10→18:40)
[2017-03-05] MEDS: Gabapentin 300 MG CAP PO SCH ×3 (08:23→20:05)
[2017-03-05] MEDS: Azithromycin 250 MG TAB PO SCH (08:24)
[2017-03-05] MEDS: guaiFENesin ER 600 MG TAB PO SCH ×2 (08:24→20:05)
--- NOTE | 2017-03-05 13:10 | PDOC.PN ---
- Subjective Encounter Start Date: 03/05/17 Encounter Start Time: 13:08 Ms. Villanueva was seen today in follow-up of Asthma exacerbation. She was upset with the respiratory therapist. She says she is breathing worse. - Objective MAR Reviewed: Yes Vital Signs & Weight: Vital Signs (12 hours) Temp Pulse Resp BP Pulse Ox 03/05/17 12:14 97.6 F 83 18 125/78 90 L 03/05/17 12:00 89 L 03/05/17 10:34 71 16 95 03/05/17 08:00 97.9 F 71 16 03/05/17 07:40 97.9 F 71 20 132/74 97 03/05/17 07:10 85 16 95 03/05/17 06:47 79 18 96 03/05/17 04:31 96 03/05/17 04:00 97.5 F L 78 18 142/72 H 97 03/05/17 03:24 78 18 96 Weight Admit Weight 338 lb Weight 338 lb 6 oz I&O: 03/04/17 03/05/17 03/06/17 06:59 06:59 06:59 Intake Total 310 1520 240 Output Total 600 Balance -290 1520 240 Result Diagrams: 03/01/17 05:11 03/02/17 04:28 Additional Labs: Accuchecks 03/05/17 03/05/17 03/04/17 11:22 05:29 19:16 POC Glucose 133 H 85 179 H 03/04/17 16:12 POC Glucose 122 H Phys Exam - Physical Examination HEENT: PERRLA + bilateral wheezeing, no rales, Cardiovascular: RRR, no significant murmur Gastrointestinal: soft, non-tender, positive bowel sounds Musculoskeletal: no edema Dx/Plan (1) Acute and chronic respiratory failure Code(s): J96.20 - ACUTE AND CHR RESP FAILURE, UNSP W HYPOXIA OR HYPERCAPNIA Status: Acute (2) Asthma exacerbation Code(s): J45.901 - UNSPECIFIED ASTHMA WITH (ACUTE) EXACERBATION Status: Acute (3) Diabetes mellitus type 2 in obese Code(s): E11.69 - TYPE 2 DIABETES MELLITUS WITH OTHER SPECIFIED COMPLICATION; E66.9 - OBESITY, UNSPECIFIED Status: Acute (4) Hypertension Code(s): I10 - ESSENTIAL (PRIMARY) HYPERTENSION Status: Acute (5) Fibromyalgia Status: Acute - Plan * Asthma Exacerbation- slowly improving * DM- blood glucose is stable * Chest pain- continue with Toradol and Amity as needed * HTN- blood pressure is stable * Await furthe recommendations from Dr. Rose.
[2017-03-05] MEDS: HumaLOG 300 UNITS/3 ML VIAL SC PRN (17:24)
[2017-03-05] MEDS: Doxepin HCl 10 MG CAP PO SCH (20:05)
[2017-03-05] MEDS: Lorazepam 1 MG TAB PO PRN (20:05)
--- NOTE | 2017-03-05 20:09 | PRG ---
DATE OF SERVICE: 03/05/2017 SUBJECTIVE: Ms. Villanueva says she is feeling better. She still has audible wheezes at her bases but she has dramatically improved compared to her presenta tion. OBJECTIVE: VITAL SIGNS: She is afebrile, heart rate 83, respiratory rate 18, oximetry is 90 on room air. LUNGS: Remarkable for end expiratory wheezes at both lung bases. HEART: Regular rhythm. ABDOMEN: Soft. LABORATORY: No new lab except for glucose of 133. IMPRESSION: Asthmatic bronchitis with possible coexistent atypical pneumonia. PLAN: P.o. medications, possibly home in the morning, states she has a nebulizer she can get from he r father, she should go home with DuoNeb 4 times a day, 2-week prednisone taper and finish her course of antibiotics.
[2017-03-06] MEDS: Mometasone/Formoterol 120 PUFF INHALER INH SCH (06:29)
[2017-03-06] MEDS: Azithromycin 250 MG TAB PO SCH (07:57)
[2017-03-06] MEDS: Gabapentin 300 MG CAP PO SCH (07:57)
[2017-03-06] MEDS: guaiFENesin ER 600 MG TAB PO SCH (07:57)
[2017-03-06] MEDS: Lorazepam 1 MG TAB PO PRN (07:57)
[2017-03-06 08:01] VITALS: BP 123/75; TEMP 98.6
--- NOTE | 2017-03-06 11:14 | PDOC.PN ---
- Subjective Encounter Start Date: 03/06/17 Encounter Start Time: 11:12 Ms. Villanueva was seen today in follow-up of asthma exacerbation. She is breathing much better today. - Objective MAR Reviewed: Yes Vital Signs & Weight: Vital Signs (12 hours) Temp Pulse Resp BP Pulse Ox 03/06/17 10:09 79 16 94 L 03/06/17 08:00 98.6 F 79 20 123/75 96 03/06/17 06:29 86 16 94 L 03/06/17 06:26 86 16 94 L 03/06/17 03:45 97 03/06/17 01:47 84 16 94 L Weight Admit Weight 338 lb Weight 338 lb 6 oz I&O: 03/05/17 03/06/17 03/07/17 06:59 06:59 06:59 Intake Total 1520 1720 Balance 1520 1720 Result Diagrams: 03/01/17 05:11 03/02/17 04:28 Additional Labs: Accuchecks 03/06/17 03/05/17 03/05/17 04:11 19:27 15:48 POC Glucose 96 127 H 213 H 03/05/17 11:22 POC Glucose 133 H Phys Exam - Physical Examination HEENT: PERRLA Respiratory: no wheezing, no rales, no rhonchi, clear to auscultation bilateral Cardiovascular: RRR, no significant murmur Gastrointestinal: soft, non-tender, positive bowel sounds Musculoskeletal: no edema Dx/Plan (1) Acute and chronic respiratory failure Code(s): J96.20 - ACUTE AND CHR RESP FAILURE, UNSP W HYPOXIA OR HYPERCAPNIA Status: Acute (2) Asthma exacerbation Code(s): J45.901 - UNSPECIFIED ASTHMA WITH (ACUTE) EXACERBATION Status: Acute (3) Hypertension Code(s): I10 - ESSENTIAL (PRIMARY) HYPERTENSION Status: Acute (4) Fibromyalgia Status: Acute - Plan * Asthma exacerbation- improved * She is stable for discharge * Steroid induced hypergylcemia- patient will be sent home with a SSI, and will need to be screen for diabetes once she is off steroids..
--- NOTE | 2017-03-06 11:28 | PRG ---
DATE OF SERVICE: 03/06/2017 SUBJECTIVE: She feels like she is back to her baseline. OBJECTIVE: HEART: Regular rhythm. Abdomen: Soft. VITAL SIGNS: Afebrile, heart rate 70, respiratory rate 16, oximetry is 94. LUNGS: Lungs are completely clear. IMPRESSION: Asthmatic bronchitis. PLAN: 1. Prednisone 20 mg for 8 days, 10 mg for 8 days. 2. I have given her doxycycline to take for 3 more days. This will be less expensive than the Zithr omax. I have started on Singulair 10 mg a day as a preventive drug. Written a prescription for albuterol unit dose so she can bias more nebulizer medicines and this is o n the [facility] $4 plan. There is no reason to prescribe Symbicort that she can afford it.
[2017-03-06] MEDS: HYDROcodone/Acetaminophen 5/325 mg Tablet PO PRN (12:37)
--- NOTE | 2017-03-06 13:26 | DIS ---
PRIMARY CARE PHYSICIAN: Currently does not have a primary care physician. DATE OF ADMISSION: 03/01/2017 DATE OF DISCHARGE: 03/06/2017 DISCHARGE DISPOSITION: Home. PRIMARY DISCHARGE DIAGNOSES: 1. Asthma exacerbation. 2. Acute respiratory failure secondary to #1 with hypoxemia. 3. Morbid obesity. The patient has a BMI of 53. 4. Hypertension. 5. Steroid induced hyperglycemia. Please make a note, the patient states that she does not have a history of diabetes mellitus even tho [facility] that is listed in her history and physical, therefore, this is a correction to the record. The p zari has not been diagnosed with diabetes and the blood sugar is likely steroid induced hyperglycem ia. DISCHARGE MEDICATIONS: Include, insulin sliding scale with NovoLog, prednisone 10 mg as directed, po tassium 99 mg daily, metoprolol succinate extended release 25 mg daily, Ativan 1 mg q.6 as needed, Ad sal 200 mg q.6, gabapentin 300 mg t.i.d., Cymbalta 60 mg daily, doxepin 10 mg at bedtime, aspirin 81 mg daily, and albuterol nebs. PROCEDURES DONE DURING ADMISSION: The patient had a CT angiogram of the chest, which was negative fo r pulmonary embolism. CODE STATUS: FULL CODE. ALLERGIES: SULFA. HOSPITAL COURSE: Ms. Villanueva is a 47-year-old female, who presented to the emergency room with complai nts of shortness of breath and wheezing. She has a history of asthma. She was admitted for an acute asthma exacerbation. She was placed on IV antibiotics empirically as well as steroids and DuoNebs. She improved over the course of the next couple of days in the hospital, she did require pulmonary c onsultation to help manage the asthma exacerbation. She was noted to have blood sugars in the range of the mid 100s-200s. She says that she never had a history of diabetes in the past and it is possib le that the blood sugar elevation is related to prednisone or steroids. I instructed her to go home with a sliding scale. She was instructed on how to do this, and then once she is off steroids, her [facility] care provider can screen her properly for diabetes to determine whether or not she has this co ndition.
[2017-03-07] MEDS ORDERED: Ibuprofen 600 MG TAB PO PRN (20:00)
== END 2017-03-06 13:46 | disposition home or self-care (01) | DRG 189 ==
LOC: ERS 18:19 → 2NO 03-01 02:37 → INTOOBSV 03-01 02:37 → OBSVTOIN 03-01 02:37 → T4-B 03-01 18:02
PROVIDERS: ADMIT Internal Medicine Addiction Medicine; ATTEND Internal Medicine Addiction Medicine
PROC: 02H633Z Insertion of Infusion Device into Right Atrium, Percutaneous Approach (ICD-10-PCS; principal; 2017-03-03)
DX: J96.01 Acute respiratory failure with hypoxia (principal); J45.902 Unspecified asthma with status asthmaticus; Z68.43 Body mass index [BMI] 50.0-59.9, adult; J45.901 Unspecified asthma with (acute) exacerbation; E11.65 Type 2 diabetes mellitus with hyperglycemia; E66.01 Morbid (severe) obesity due to excess calories; I10 Essential (primary) hypertension; M79.7 Fibromyalgia; J20.9 Acute bronchitis, unspecified; F32.9 Major depressive disorder, single episode, unspecified; F41.9 Anxiety disorder, unspecified; Z88.2 Allergy status to sulfonamides; Z82.49 Family history of ischemic heart disease and other diseases of the circulatory system; T38.0X5A Adverse effect of glucocorticoids and synthetic analogues, initial encounter
CPT/HCPCS: 36415; 36416; 36569; 71010; 71275; 80048; 80053; 82553; 82805; 83880; 84484; 85025; 87040; 93005; 94060; 94640; 94660; 94664; 94760; 96365; 96367; 96375; A4216; C1751; J0456; J0696; J1644; J1885; J2060; J2270; J2543; J2920; J3475; J7050; J7506; J7620